=== PATIENT | male | born 1960 | race Caucasian/White ===

== ENCOUNTER 2017-01-22 15:26 | Emergency (ER) | payer MEDICARE ==
[2017-01-22] MEDS ORDERED: Pepcid 20 MG VIAL IV ONE ×2 (15:55→16:14)
[2017-01-22] MEDS ORDERED: BENADRYL 50 MG/ML IV ONE (15:55)
[2017-01-22] MEDS ORDERED: SUBLIMAZE 100 MCG/2 ML IV ONE (15:55)
[2017-01-22] MEDS ORDERED: Sodium Chloride 0.9% 1000 ML 1,000 ML IV STA (15:55)
[2017-01-22 16:09] LABS: Mean Cell Volume 93.5 fl (78-100); Mean Corpuscular Hemoglobin 31.2 pg (26-32); Mean Platelet Volume 11.2 fl (6-9.5); Platelet Count 215 K/mm3 (150-450); Red Blood Count 5.25 M/mm3 (4.1-5.6); Red Cell Distribution Width 14.4 % (11.5-14.0); White Blood Count 11.3 K/mm3 (4.0-10.5)
[2017-01-22] MEDS ORDERED: BENADRYL 50 MG/ML ONE (16:14)
[2017-01-22 16:15] LABS: COMPLETE URINE MICROSCOPIC? NO; Collection Type VOID; Ph 5.5 (5-6)
[2017-01-22] MEDS ORDERED: SUBLIMAZE 100 MCG/2 ML ONE (16:15)
[2017-01-22] MEDS ORDERED: Sodium Chloride 0.9% 1000 ML 1,000 ML ONE (16:15)
[2017-01-22 16:32] LABS: ALBUMIN 3.7 g/dL (3.4-5.0); ALKALINE PHOSPHATASE 100 U/L (46-116); ANION GAP 11.7 MEQ/L (5-15); BILIRUBIN,TOTAL 0.2 mg/dL (0.2-1.0); BLOOD UREA NITROGEN 8 mg/dL (9-20); CHLORIDE 107 mEq/L (98-107); Carbon Dioxide 28.1 mEq/L (21-32); Glucose 98 MG/DL (70-110); LIPASE 452 U/L (73-393); SGOT/AST 28 U/L (15-37); SGPT/ALT 29 U/L (12-78); SODIUM 143 mEq/L (136-145); Total Protein 7.6 gm/dL (6.4-8.2)
[2017-01-22 16:40] LABS: ATYPICAL LYMPHS 7 %; BAND 1 % (0.0-2.0); Basophil 1 % (0.0-1.0); Eosinophil 3 % (0.00-3.0); Platelet Estimate NORMAL (NORMAL); Total Cells Counted 100
--- NOTE | 2017-01-22 17:00 | ERPHSYRPT ---
- History of Present Illness Time Seen by Provider: 01/22/17 15:29 Historian: patient Patient Subjective Stated Complaint: abd pain for 2 weeks Triage Nursing Assessment: states has intermittent all over abd pain for 2 weeks. no pattern with oral intake. normal bowel/bladder. denies injury. adb soft, hypoactive. normal bm this am. Physician History: CC: abd pain Hx: 56 y/o patient of ROHIT García. He has abdominal pain worse in left abdomen for 2 weeks. Comes and goes and some worse today. Normal bowel and bladder function. No fever or chills. No prior abd surgeries. Burning pain. Might have started when he twisted 2 weeks ago. 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 Timing/Duration: week(s) (2) Allergies/Adverse Reactions: aspirin Allergy (Verified 01/22/17 15:36) Home Medications: Simvastatin 20Mg [Zocor 20Mg] 20 mg PO HS 09/26/13 [History] Hx Tetanus, Diphtheria Vaccination/Date Given: Yes Hx Influenza Vaccination/Date Given: No Hx Pneumococcal Vaccination/Date Given: No Immunizations Up to Date: Yes - Review of Systems Constitutional: No Fever, No Chills Eyes: No Symptoms Ears, Nose, & Throat: No Symptoms Respiratory: No Cough Cardiac: No Chest Pain Abdominal/Gastrointestinal: Abdominal Pain, No Nausea, No Vomiting, No Diarrhea Genitourinary Symptoms: No Dysuria Musculoskeletal: No Back Pain Skin: No Rash Neurological: No Headache All Other Systems: Reviewed and Negative - Past Medical History Pertinent Past Medical History: Yes Cardiac History: High Cholesterol - Past Surgical History Past Surgical History: Yes Musculoskeletal: Orthopedic Surgery - Social History Smoking Status: Current every day smoker Exposure to second hand smoke: No Drug Use: none Patient Lives Alone: No - Nursing Vital Signs Nursing Vital Signs: Initial Vital Signs Temperature 97.8 F Temperature Source Oral Pulse Rate 85 Respiratory Rate 16 Blood Pressure [Right Arm] 133/80 Pain Intensity 0 - Physical Exam General Appearance: alert Eye Exam: PERRL/EOMI Ears, Nose, Throat Exam: normal ENT inspection, moist mucous membranes Neck Exam: normal inspection, non-tender, supple Respiratory Exam: normal breath sounds, lungs clear Cardiovascular Exam: regular rate/rhythm, No murmur Gastrointestinal/Abdomen Exam: soft, tenderness (guards around abdomen but not reproducible) Male Genitalia Exam: No hernia, No testicular tenderness Back Exam: normal inspection, normal range of motion Extremity Exam: normal inspection, normal range of motion Neurologic Exam: alert, oriented x 3, 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, 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, sensation nml, No motor deficits Skin Exam: warm, dry, No rash SpO2 Interpretation: normal SpO2: 96 Oxygen Delivery: Room Air - Course Nursing assessment & vital signs reviewed: Yes EKG Interpreted by Me: RATE (74), Sinus Rhythm, NORMAL AXIS, NORMAL INTERVALS ( QTc 409), NORMAL QRS, NORMAL ST-T - CT Exams abd/pelvis CT Interpretation: Tele-radiologist Report (bowel wall thickening, diverticulitis) Ordered Tests: Active Orders 24 hr Category Date Time Status Clean Catch Urine Specimen STAT Care 01/22/17 15:55 Active EKG-ER Only STAT Care 01/22/17 15:55 Active IV Insertion STAT Care 01/22/17 15:55 Active ABDOMEN AND PELVIS W CONTRAST [CT] Stat Exams 01/22/17 15:55 Taken CBC W DIFF Stat Lab 01/22/17 16:07 Completed CMP Stat Lab 01/22/17 16:07 Completed LIPASE Stat Lab 01/22/17 16:07 Completed Manual Differential NC Stat Lab 01/22/17 16:07 Completed UA Stat Lab 01/22/17 16:07 Completed Urine Triage Profile Stat Lab 01/22/17 16:07 Completed Medication Summary Generic Name Dose Route Start Last Admin Trade Name Freq PRN Reason Stop Dose Admin Levofloxacin 500 mg 01/22/17 17:41 Levofloxacin 500 Mg Tablet PO 01/22/17 17:42 STAT ONE Metronidazole 500 mg 01/22/17 17:41 Flagyl 500 Mg PO 01/22/17 17:42 STAT ONE Discontinued Medications Generic Name Dose Route Start Last Admin Trade Name Freq PRN Reason Stop Dose Admin Diphenhydramine HCl 25 mg 01/22/17 15:55 01/22/17 16:21 Benadryl 50 Mg/Ml IV 01/22/17 15:56 25 mg STAT ONE Administration Diphenhydramine HCl Confirm 01/22/17 16:14 Benadryl 50 Mg/Ml Administered 01/22/17 16:15 Dose 50 mg .ROUTE .STK-MED ONE Famotidine 20 mg 01/22/17 15:55 01/22/17 16:21 Pepcid 20 Mg Vial IV 01/22/17 15:56 20 mg STAT ONE Administration Famotidine Confirm 01/22/17 16:14 Pepcid 20 Mg Vial Administered 01/22/17 16:15 Dose 20 mg IV .STK-MED ONE Fentanyl Citrate 50 mcg 01/22/17 15:55 01/22/17 16:21 Sublimaze 100 Mcg/2 Ml IV 01/22/17 15:56 50 mcg STAT ONE Administration Fentanyl Citrate Confirm 01/22/17 16:15 Sublimaze 100 Mcg/2 Ml Administered 01/22/17 16:16 Dose 100 mcg .ROUTE .STK-MED ONE Sodium Chloride 1,000 mls @ 999 mls/hr 01/22/17 15:55 01/22/17 16:21 Sodium Chloride 0.9% 1000 Ml IV 01/22/17 16:55 999 mls/hr .Q1H1M STA Administration Sodium Chloride Confirm 01/22/17 16:15 Sodium Chloride 0.9% 1000 Ml Administered 01/22/17 16:16 Dose 1,000 mls @ ud .ROUTE .STK-MED ONE Lab/Rad Data: Laboratory Result Diagrams 01/22/17 16:07 01/22/17 16:07 Laboratory Results 01/22/17 01/22/17 01/22/17 Range/Units 16:07 16:07 16:07 WBC 11.3 H (4.0-10.5) K/mm3 RBC 5.25 (4.1-5.6) M/mm3 Hgb 16.4 (12.5-18.0) gm/dl Hct 49.1 (42-50) % MCV 93.5 (78-100) fl MCH 31.2 (26-32) pg MCHC 33.4 (32-36) g/dl RDW 14.4 H (11.5-14.0) % Plt Count 215 (150-450) K/mm3 MPV 11.2 H (6-9.5) fl Segmented Neutrophils 57 (36.-66.) % Band Neutrophils 1 (0.0-2.0) % Lymphocytes (Manual) 25 (24-44) % Monocytes (Manual) 6 (0.0-12.0) % Eosinophils (Manual) 3 (0.00-3.0) % Basophils (Manual) 1 (0.0-1.0) % Differential Comment NORMAL Atypical Lymphocytes 7 % Platelet Estimate NORMAL (NORMAL) Sodium 143 (136-145) mEq/L Potassium 4.0 (3.5-5.1) mEq/L Chloride 107 (98-107) mEq/L Carbon Dioxide 28.1 (21-32) mEq/L Anion Gap 11.7 (5-15) MEQ/L BUN 8 L (9-20) mg/dL Creatinine 1.08 (0.55-1.30) mg/dl Estimated GFR > 60 ML/MIN Glucose 98 (70-110) MG/DL Calcium 8.6 (8.5-10.1) mg/dL Total Bilirubin 0.2 (0.2-1.0) mg/dL AST 28 (15-37) U/L ALT 29 (12-78) U/L Alkaline Phosphatase 100 (46-116) U/L Serum Total Protein 7.6 (6.4-8.2) gm/dL Albumin 3.7 (3.4-5.0) g/dL Lipase 452 H (73-393) U/L Ur Collection Type Urine Color (YELLOW) Urine Appearance (CLEAR) Urine pH (5-6) Ur Specific [place] (1.005-1.025) Urine Protein (Negative) Urine Glucose (UA) (NEGATIVE) mg/dL Urine Ketones (NEGATIVE) Urine Nitrite (NEGATIVE) Urine Bilirubin (NEGATIVE) Urine Urobilinogen (0-1) mg/dL Urine WBC (Auto) (NEGATIVE) Urine RBC (Auto) (0-5) Michael/ul Urine Opiates Level NEG. (NEGATIVE) Ur Methadone NEG. (NEGATIVE) Urine Barbiturates NEG. (NEGATIVE) Ur Phencyclidine (PCP) NEG. (NEGATIVE) Urine Amphetamine NEG. (NEGATIVE) U Benzodiazepine Level NEG. (NEGATIVE) Urine Cocaine NEG. (NEGATIVE) Urine Marijuana (THC) POS. (NEGATIVE) Specimen Received 01/22/17 Range/Units 16:07 WBC (4.0-10.5) K/mm3 RBC (4.1-5.6) M/mm3 Hgb (12.5-18.0) gm/dl Hct (42-50) % MCV (78-100) fl MCH (26-32) pg MCHC (32-36) g/dl RDW (11.5-14.0) % Plt Count (150-450) K/mm3 MPV (6-9.5) fl Segmented Neutrophils (36.-66.) % Band Neutrophils (0.0-2.0) % Lymphocytes (Manual) (24-44) % Monocytes (Manual) (0.0-12.0) % Eosinophils (Manual) (0.00-3.0) % Basophils (Manual) (0.0-1.0) % Differential Comment Atypical Lymphocytes % Platelet Estimate (NORMAL) Sodium (136-145) mEq/L Potassium (3.5-5.1) mEq/L Chloride (98-107) mEq/L Carbon Dioxide (21-32) mEq/L Anion Gap (5-15) MEQ/L BUN (9-20) mg/dL Creatinine (0.55-1.30) mg/dl Estimated GFR ML/MIN Glucose (70-110) MG/DL Calcium (8.5-10.1) mg/dL Total Bilirubin (0.2-1.0) mg/dL AST (15-37) U/L ALT (12-78) U/L Alkaline Phosphatase (46-116) U/L Serum Total Protein (6.4-8.2) gm/dL Albumin (3.4-5.0) g/dL Lipase (73-393) U/L Ur Collection Type VOID Urine Color YELLOW (YELLOW) Urine Appearance CLEAR (CLEAR) Urine pH 5.5 (5-6) Ur Specific [place] 1.025 (1.005-1.025) Urine Protein NEGATIVE (Negative) Urine Glucose (UA) NEGATIVE (NEGATIVE) mg/dL Urine Ketones NEGATIVE (NEGATIVE) Urine Nitrite NEGATIVE (NEGATIVE) Urine Bilirubin NEGATIVE (NEGATIVE) Urine Urobilinogen 0.2 (0-1) mg/dL Urine WBC (Auto) NEGATIVE (NEGATIVE) Urine RBC (Auto) NEGATIVE (0-5) Michael/ul Urine Opiates Level (NEGATIVE) Ur Methadone (NEGATIVE) Urine Barbiturates (NEGATIVE) Ur Phencyclidine (PCP) (NEGATIVE) Urine Amphetamine (NEGATIVE) U Benzodiazepine Level (NEGATIVE) Urine Cocaine (NEGATIVE) Urine Marijuana (THC) (NEGATIVE) Specimen Received 01/22/17 1600 - Progress Progress Note: 01/22/17 17:42 Abd soft and without point tenderness. Will treat with oral abtx as OP. Instr given. Counseled pt/family regarding: lab results, diagnosis, need for follow-up, rad results - Departure Time of Disposition: 17:43 Departure Disposition: Home Clinical Impression: Diverticulitis Qualifiers: Diverticulitis site: large intestine Diverticulitis bleeding: without bleeding Diverticulitis complication: without perforation or abscess Qualified Code(s): K57.32 - Diverticulitis of large intestine without perforation or abscess without bleeding Condition: Stable Critical Care Time: No Referrals: CRISTINE GARCÍA [Primary Care Provider] - Instructions: Abdominal Pain-Adult, Diverticulitis Additional Instructions: [place] diet with no nuts, seeds, hulls. Rx levaquin. Rx flagyl. No alcohol products. Follow up with ROHIT García Tuesday or Tuesday. Return for fever, worsened pain, vomiting, passing blood or concerns. Tylenol as directed for discomfort. Prescriptions: Levofloxacin [Levaquin] 500 mg PO DAILY #10 tablet Metronidazole 500 mg [Flagyl 500 MG] 500 mg PO BID #20 tablet
[2017-01-22] MEDS ORDERED: Flagyl 500 MG PO ONE (17:41)
[2017-01-22] MEDS ORDERED: Levofloxacin 500 MG Tablet PO ONE (17:41)
[2017-01-22 17:45] VITALS: O2SAT 96
[2017-01-22] MEDS ORDERED: Levofloxacin 500 MG Tablet ONE (17:45)
[2017-01-22] MEDS ORDERED: Flagyl 500 MG ONE (17:45)
[2017-01-22 17:59] VITALS: BP 128/72; PULSE 80
--- NOTE | 2017-01-22 23:13 | XRAY ---
Indication: Abdominal pain. Multiple contiguous axial images obtained through the abdomen and pelvis using 80 cc Isovue 370 contrast only. Comparison: None Lung bases are essentially clear. Heart is not enlarged. Noncontrasted stomach and bowel loops appear nonobstructed. Mild diffuse scattered colonic fecal debris and diverticulosis. Sigmoid colon demonstrates long segment of moderate circumferential wall thickening with minimal stranding possible mild/early diverticulitis. No free fluid/air. Normal appendix. Remaining liver, gallbladder, pancreas, spleen, adrenal glands, kidneys, ureters, and bladder appear unremarkable. Mild aortoiliac calcifications without AAA or pathologic retroperitoneal lymphadenopathy. Osseous structures intact. Small fatty right inguinal hernia. Impression: 1. Scattered colonic diverticulosis. Mild/early sigmoid diverticulitis without complications. 2. Mild fecal stasis without obstruction. 3. Small fatty right inguinal hernia. Comment: Preliminary interpretation was made by C. No critical discrepancy. CTDI 23.10
== END 2017-01-22 18:00 | disposition home or self-care (01) ==
LOC: ED 15:26
DX: K57.32 Diverticulitis of large intestine without perforation or abscess without bleeding (principal); R10.9 Unspecified abdominal pain; M92.50 Unspecified juvenile osteochondrosis of tibia and fibula
CPT/HCPCS: 36000; 36415; 74177; 80053; 80307; 81002; 83690; 85025; 93005; 96360; 96374; 96375; 99284; J1200; J3010; A9270-GY

== ENCOUNTER 2017-02-14 05:56 | Day surgery (SDC) | payer MEDICARE ==
[2017-02-14] MEDS ORDERED: Lactated Ringers 1,000 ML IV SCH (06:30)
[2017-02-14] MEDS ORDERED: Ketamine HCl 50 MG/ML IV ONE (08:00)
[2017-02-14] MEDS ORDERED: DIPRIVAN 200 MG/20 ML IV ONE (08:00)
--- NOTE | 2017-02-14 10:04 | OP ---
SURGERY DATE: 02/14/2017 SURGERY TIME: 725 PREOPERATIVE DIAGNOSES: 1. Abdominal pain. 2. Change in bowel habits. POSTOPERATIVE DIAGNOSES: 1. Small polyp in the transverse colon. 2. Mild diverticulosis. OPERATIVE PROCEDURE: Colonoscopy with biopsy. SURGEON: Dr. Loja. MEDICATIONS: MAC anesthesia. HISTORY: The patient is a 56 year-old white male patient presenting now for colonoscopic evaluation. He was appraised the risks of the procedure including the risk of perforation, phlebitis, untoward reaction to medication, bleeding, missed lesions. The patient verbalized understanding, and desired to have the procedure performed. DESCRIPTION OF PROCEDURE: The patient was given medication by the anesthesia department. He had continuous pulse oximetry, ECG monitoring, and intermittent BP monitoring and end-tidal CO2 monitoring during the examination. He was placed in the left lateral decubitus position. A digital rectal examination was performed and revealed normal anal sphincter tone, no masses, and normal prostate. The flexible Olympus pediatric colonoscope was used to intubate the rectum. A view of the colon was developed sequentially to the cecum. Upon insertion and withdrawal there was noted mild diverticulosis in the left colon. There was also noted 1 small sessile polyp measuring approximately 0.5 to 1.0 cm in size. This was biopsied with [employer] biopsy technique to rule out any adenomatous change. Upon insertion and withdrawal including retroflex views of the rectum no other mucosal lesions were encountered. The scope was removed from the patient, who tolerated the procedure well and was sent back to OP recovery in good condition. The prep was noted to be good.
[2017-02-14 10:17] VITALS: BP 137/90; PULSE 76; O2SAT 98
== END 2017-02-14 09:40 | disposition home or self-care (01) ==
LOC: SDC 05:56
PROVIDERS: ATTEND Family Medicine
PROC: 0DBL8ZX Excision of Transverse Colon, Via Natural or Artificial Opening Endoscopic, Diagnostic (ICD-10-PCS; principal; 2017-02-14)
DX: D12.3 Benign neoplasm of transverse colon (principal); K57.90 Diverticulosis of intestine, part unspecified, without perforation or abscess without bleeding; R19.4 Change in bowel habit
CPT/HCPCS: 00810; 36415; 88305; J2704

== ENCOUNTER 2017-10-24 08:32 | Day surgery (SDC) | payer MEDICARE ==
--- NOTE | 2017-10-24 07:53 | HP ---
DATE OF SURGERY: 10/24/2017 HISTORY OF PRESENT ILLNESS: The patient is a 57 year-old who had some mid abdominal pain for months and right upper quadrant pain at times. No nausea or vomiting. He had some diverticular problems in the past as well. Ultrasound showed cholelithiasis. He denies any abdominal surgery. No change in bowel movements, any liver problems or jaundice. I feel he has symptomatic cholelithiasis, chronic cholecystitis. I feel he would benefit from cholecystectomy. PAST MEDICAL HISTORY: Hypercholesterolemia, diverticular problems. PAST SURGICAL HISTORY: Knee replacement. MEDICATIONS: Simvastatin. ALLERGIES: ASPIRIN. FAMILY HISTORY: Diabetes. SOCIAL HISTORY: One pack per day smoker, denies alcohol abuse. REVIEW OF SYSTEMS: Twelve systems reviewed per admission assessment. No chest pain or palpitations other systems negative or noncontributory as above and per preadmission questionnaire. PHYSICAL EXAMINATION: GENERAL: No acute distress. HEENT: Sclerae nonicteric. NECK: No JVD. CHEST: Equal excursion, nonlabored breathing. CVS: Regular rate and rhythm. ABDOMEN: Soft. No peritoneal signs. EXTREMITIES: No significant edema. NEURO: Alert, oriented, moving extremities symmetrically. No gross motor deficits noted. LAB DATA AND TESTS: He had an ultrasound show cholelithiasis. IMPRESSION: Symptomatic cholelithiasis, probable chronic cholecystitis. I feel the patient would benefit from cholecystectomy. Shown the gallbladder pamphlet and risk sheet, explained the procedure in detail but not limited to bleeding or infection, risk of trocar injury or hernia, small risk of bowel, bladder or blood vessel injury, small risk of bile leak, bile duct injury, retained stone or sludge possibly requiring further procedure either open or ERCP, general risk of anesthesia, deep venous thrombosis, pulmonary embolism, pneumonia, perioperative risk of aches, pains, bloating, constipation and/or loose stools possibly chronic in nature, general risk of anesthesia or sedation but not limited to. He understands and agrees to the planned procedure and will proceed with laparoscopic cholecystectomy possible open as an outpatient.
[~2017-10-24 08:32] MED LIST: Lactated Ringers 1,000 ML IV ONE; Lactated Ringers 1,000 ML IV SCH; Sensorcaine 0.25% 10 ML ONE
[2017-10-24] MEDS ORDERED: BRIDION 200MG/2ML IV ONE (08:33)
[2017-10-24] MEDS ORDERED: Zemuron 100 MG/10 ML IV ONE (08:33)
[2017-10-24] MEDS ORDERED: DILAUDID 2 MG INJECTION IV ONE (08:33)
[2017-10-24] MEDS ORDERED: Versed 2 MG/2 ML Injection IV ONE (08:33)
[2017-10-24] MEDS ORDERED: DIPRIVAN 200 MG/20 ML IV ONE (08:33)
[2017-10-24] MEDS ORDERED: SUBLIMAZE 250 MCG/5 ML IV ONE (08:33)
[2017-10-24] MEDS ORDERED: Lactated Ringers 1,000 ML IV ONE (08:42)
[2017-10-24] MEDS ORDERED: MEFOXIN 2 GM PREMIX** 2 GM/50 ML ML IV SCH (09:00)
[2017-10-24] MEDS ORDERED: Xopenex 1.25 MG/0.5 ML UD NEBULE IH ONE ×2 (11:23→11:25)
[2017-10-24] MEDS ORDERED: DILAUDID 2 MG INJECTION ONE (11:32)
[2017-10-24 14:53] VITALS: BP 126/78; PULSE 88; O2SAT 98
--- NOTE | 2017-10-25 07:41 | OP ---
SURGERY DATE/TIME: 10/24/2017 1017 PREOPERATIVE DIAGNOSIS: Symptomatic cholelithiasis, chronic cholecystitis. POSTOPERATIVE DIAGNOSIS: Symptomatic cholelithiasis, chronic cholecystitis. PROCEDURE: Laparoscopic cholecystectomy. SURGEON: Dr. Vasu Lockhart. FURNITURE ARRANGER: Fatou Hagen, Medical Student III. ANESTHESIA: General. ESTIMATED BLOOD LOSS: Minimal. INDICATIONS: As noted above. Risks and benefits explained in detail and not limited to and consent obtained. DESCRIPTION OF PROCEDURE AND FINDINGS: The patient was taken to the OR. General anesthesia was induced. Abdomen prepped and draped in the usual sterile fashion. After official time out and no disagreement with planned procedure, a transverse incision made at the supraumbilical area. Fascia grasped and pulled upward. Veress needle inserted and tested with saline. Pneumoperitoneum accomplished insufflating opening pressure of 0-15. An 11 mm bladeless port and camera were inserted without difficulty followed by two - 5 mm right upper quadrant ports and a 5 mm epigastric port. The gallbladder grasped and retracted over the edge of the liver. Extensive omental adhesions over the top edge of the liver and these were carefully taken down with brief bursts of pin point cautery staying well away from any viscera. The gallbladder is able to be grasped and retracted over the edge of the liver. He had extensive fibrofatty adhesions. Dissected posterior-lateral to anterior fashion down to cystic duct infundibular area as well as the main cystic artery isolated and carefully dissected free until a critical view obtained both anteriorly and posteriorly. Once this was accomplished cystic duct was then clipped x3 and divided in the usual fashion clipping additional oozing side branches directly on the gallbladder wall as necessary staying directly on the gallbladder wall. Just prior to releasing from final attachments to the anterior edge of the liver the liver bed re-inspected. Clips noted to be in place in cystic duct and cystic artery stumps. There were no signs of any active bleeding or bile leakage. The gallbladder was released from final attachments and placed in a Pleatman sac pulled up and out epigastrium and decompressed of bile, suctioned free and pulled free and passed off. The 07/27 fascia defect closed with puncture closure device with #1 Vicryl. Prior to releasing the pneumoperitoneum copious amount of irrigation irrigating lateral to the liver and subhepatic space irrigating until clear. The liver bed re-inspected. Clips noted to be in place in cystic duct and cystic artery stumps. There were no signs of any active bleeding or bile leakage. It was felt there is no benefit in drain placement. At this point pneumoperitoneum decompressed. The wound was irrigated out. Skin incision closed with 4-0 Vicryl. Steri-Strips and sterile dressing applied. 0.25% Marcaine local injected along the skin incision fascial defect. The patient tolerated the procedure well. There were no immediate complications. There was no family available to discuss the findings with at this time. If they have any questions I could be paged. Otherwise I will see him back in the office next week. He is transferred to the recovery room in stable condition.
== END 2017-10-24 13:45 | disposition home or self-care (01) ==
LOC: SDC 08:32
PROVIDERS: ATTEND Surgery
PROC: 0FT44ZZ Resection of Gallbladder, Percutaneous Endoscopic Approach (ICD-10-PCS; principal; 2017-10-24)
DX: K80.10 Calculus of gallbladder with chronic cholecystitis without obstruction (principal)
CPT/HCPCS: 00790; 88304; 94640; J0694; J1170; J2250; J2704; J3010; A9270-GY

== ENCOUNTER 2019-03-09 15:53 | Emergency (ER) | payer MEDICARE ==
[2019-03-09 16:08] VITALS: O2SAT 94
[2019-03-09] MEDS ORDERED: BACTRIM DS TABLET PO ONE (16:14)
[2019-03-09] MEDS: BACTRIM DS TABLET PO STA (16:15)
[2019-03-09] MEDS ORDERED: XYLOCAINE 1% HCL 20 ML MDV ONE (16:22)
[2019-03-09] MEDS: Rocephin 1000 MG INJ IM STA (16:27)
--- NOTE | 2019-03-09 16:33 | ERPHSYRPT ---
- History of Present Illness Time Seen by Provider: 03/09/19 16:05 Source: patient Exam Limitations: no limitations Patient Subjective Stated Complaint: Infected index finger Triage Nursing Assessment: pt ambulated to ER. complains of infection to right indesx finger. States he was in quick care 2 days ago with same complaint Physician History: 58 y/o left handed white male seen at [facility] 2 days ago for redness of right index finger. not sig better. no xray performed. no pain meds given. pt has rx for bactrim. Occurred: days ago (2) Method of Injury: unknown Severity of Pain-Max: mild Severity of Pain-Current: mild Extremities Pain Location: 2nd finger: right Modifying Factors: Improves With: movement Associated Symptoms: none Allergies/Adverse Reactions: aspirin Allergy (Verified 03/09/19 16:08) Hives Home Medications: Simvastatin 20Mg [Zocor 20Mg] 20 mg PO HS 09/26/13 [History] Hx Tetanus, Diphtheria Vaccination/Date Given: Yes Hx Influenza Vaccination/Date Given: No Hx Pneumococcal Vaccination/Date Given: No - Review of Systems Constitutional: No Symptoms Eyes: No Symptoms Ears, Nose, & Throat: No Symptoms Respiratory: No Symptoms Cardiac: No Symptoms Abdominal/Gastrointestinal: No Symptoms Genitourinary Symptoms: No Symptoms Musculoskeletal: Joint Pain (right finger), Joint Swelling Skin: Cellulitis Neurological: No Symptoms Psychological: No Symptoms Endocrine: No Symptoms Hematologic/Lymphatic: No Symptoms Immunological/Allergic: No Symptoms - Past Medical History Pertinent Past Medical History: Yes Neurological History: No Pertinent History ENT History: No Pertinent History Cardiac History: High Cholesterol Respiratory History: No Pertinent History Endocrine Medical History: No Pertinent History Musculoskeletal History: No Pertinent History GI Medical History: Diverticulosis, Gallbladder Disease History: No Pertinent History Psycho-Social History: No Pertinent History Male Reproductive Disorders: No Pertinent History - Past Surgical History Past Surgical History: Yes Neuro Surgical History: No Pertinent History Cardiac: No Pertinent History Respiratory: No Pertinent History Gastrointestinal: No Pertinent History Genitourinary: No Pertinent History Musculoskeletal: Joint Replacement, Orthopedic Surgery Other Surgical History: right knee replacement,colonoscopy. left elbow surgery - Social History Smoking Status: Current every day smoker How long have you smoked: 40years Exposure to second hand smoke: Yes Drug Use: none Patient Lives Alone: No - Nursing Vital Signs Nursing Vital Signs: Initial Vital Signs Temperature 98.6 F 03/09/19 15:59 Pulse Rate 81 03/09/19 15:59 Blood Pressure 141/84 03/09/19 15:59 O2 Sat by Pulse Oximetry 94 L 03/09/19 15:59 Pain Scale Pain Intensity 5 - Physical Exam General Appearance: no apparent distress, alert, anxiety Eyes, Ears, Nose, Throat Exam: normal ENT inspection, moist mucous membranes Neck Exam: normal inspection, non-tender, supple, full range of motion Cardiovascular/Respiratory Exam: chest non-tender Abdominal Exam: non-tender Back Exam: normal inspection, normal range of motion, No CVA tenderness, No vertebral tenderness Shoulder Exam: normal inspection, non-tender, no evidence of injury, normal ROM Elbow/Forearm Exam: normal inspection, non-tender, no evidence of injury, normal ROM Wrist Exam: normal inspection, non-tender, no evidence of injury, normal ROM Hand Exam: bone tenderness, soft tissue tenderness, swelling (right index finger cellulitis) Neuro/Tendon Exam: normal sensation, normal motor functions, normal tendon functions, responds to pain, no evidence tendon injury Mental Status Exam: alert, oriented x 3, cooperative Skin Exam: normal color, warm, dry SpO2 Interpretation: borderline oxygenation SpO2: 94 O2 Delivery: Room Air Ordered Tests: Active Orders 24 hr Category Date Time Status HAND (MINIMUM 3 VIEWS) Stat Exams 03/09/19 16:10 Taken CULTURE,WOUND Stat Lab 03/09/19 16:11 Ordered Medication Summary Discontinued Medications Generic Name Dose Route Start Last Admin Trade Name Surjitq PRN Reason Stop Dose Admin Ceftriaxone Sodium 1,000 mg 03/09/19 16:09 Rocephin 1000 Mg Inj IM 03/09/19 16:10 STAT STA Lidocaine HCl Confirm 03/09/19 16:22 Xylocaine 1% Hcl 20 Ml Mdv Administered 03/09/19 16:23 Dose 3 ml .ROUTE .STK-MED ONE Trimethoprim/Sulfamethoxazole 1 tab 03/09/19 16:09 03/09/19 16:15 Bactrim Ds Tablet PO 03/09/19 16:10 1 tab STAT STA Administration Trimethoprim/Sulfamethoxazole Confirm 03/09/19 16:14 Bactrim Ds Tablet Administered 03/09/19 16:15 Dose 1 tab PO .STK-MED ONE - Progress Progress Note: 03/09/19 16:33 xray-no fb, no acute process Counseled pt/family regarding: diagnosis, need for follow-up, rad results - Departure Departure Disposition: Home Clinical Impression: Cellulitis, finger Condition: Stable Critical Care Time: No Referrals: CRISTINE ROBERTS [Primary Care Provider] - Additional Instructions: soak finger warm epsom salts and warm soapy water daily. no ointments. follow up with primary doctor for persistent symptoms. return to ED if symptoms worsen. continue your antibiotics as prescribed. follow up with wound culture next week. Prescriptions: Hydrocodone/APAP 5/325 [[place] 5/325 mg] 1 each PO Q12H PRN PRN #6 tablet MDD 2 PRN Reason: Pain
[2019-03-09 16:38] VITALS: BP 135/79; PULSE 76
--- NOTE | 2019-03-09 21:40 | XRAY ---
Indication: Second finger laceration. Comparison: None 3 views of the right hand demonstrates old fifth metacarpal fracture. No other bony, articular, or soft tissue abnormalities.
== END 2019-03-09 16:36 | disposition home or self-care (01) ==
LOC: ED 15:53
DX: L03.011 Cellulitis of right finger (principal)
CPT/HCPCS: 73130; 87070; 87077; 87186; 96372; 99284; J0696; A9270-GY

== ENCOUNTER 2022-01-24 09:42 | Emergency (ER) | payer MEDICARE ==
[2022-01-24] MEDS ORDERED: TORAdol 30 mg Injection IM ONE (10:33)
[2022-01-24] MEDS ORDERED: TORAdol 30 mg Injection ONE (10:33)
--- NOTE | 2022-01-24 10:39 | ERPHSYRPT ---
- History of Present Illness Time Seen by Provider: 01/24/22 10:07 Historian: patient Exam Limitations: no limitations Patient Subjective Stated Complaint: PT states "My right side hurts when I move and bend, I might have pulled something. I was installing a stove when it started about three days ago." Triage Nursing Assessment: Pt presented alert and oriented X 3, skin wpd Pt ambulates with a slow upright steady gait, able to speak i clear full sentences. PT winces when he bends over Physician History: 61 years old male presented to ER with chief complaint of right flank pain for the last 3 days. Patient reports sharp pain moderate intensity, aggravated with movements in a certain direction, coughing, nonradiating, not associated with any nausea vomiting or urinary complaints. Patient thinks this could be a pulled muscle from working hard on the stove placement at home. No history of kidney stones. No fever chills reported. Timing/Duration: day(s) (3), intermittent, sudden, worse Activities at Onset: activity Quality: sharpness Abdominal Pain Onset Location: flank Pain Radiation: no radiation Severity of Pain-Max: moderate Severity of Pain-Current: moderate Modifying Factors: Worsens With: coughing, movement, palpation Associated Symptoms: denies symptoms Previous symptoms: no prior history Allergies/Adverse Reactions: aspirin Allergy (Verified 03/09/19 16:08) Hives Home Medications: Simvastatin 20Mg [Zocor 20Mg] 20 mg PO HS 09/26/13 [History] Atorvastatin Calcium [Lipitor] 10 mg PO DAILY 01/24/22 [History] Meclizine HCl 25 mg [Antivert 25 mg] 25 mg PO DAILY 01/24/22 [History] Metformin HCl 500 mg [Glucophage 500 MG] 500 mg PO BIDWM 01/24/22 [History] Hx Tetanus, Diphtheria Vaccination/Date Given: Yes Hx Influenza Vaccination/Date Given: No Hx Pneumococcal Vaccination/Date Given: No Immunizations Up to Date: Yes Travel Risk - International Travel Have you traveled outside of the country in past 3 weeks: No - Coronavirus Screening Are you exhibiting any of the following symptoms?: No Close contact with a COVID-19 positive Pt in past 14-21 Days: No - Vaccine Status Have you recieved a Covid-19 vaccination: Yes 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 - Vaccination Dates Date of 2cond Vaccination (if applicable): unkn Dates if Unknown: unkn - Review of Systems Constitutional: No Symptoms Eyes: No Symptoms Ears, Nose, & Throat: No Symptoms Respiratory: No Symptoms Cardiac: No Symptoms Abdominal/Gastrointestinal: Abdominal Pain Genitourinary Symptoms: No Symptoms Musculoskeletal: Myalgias Skin: No Symptoms Neurological: No Symptoms Psychological: No Symptoms Endocrine: No Symptoms Hematologic/Lymphatic: No Symptoms Immunological/Allergic: No Symptoms - Past Medical History Pertinent Past Medical History: Yes Neurological History: No Pertinent History ENT History: No Pertinent History Cardiac History: High Cholesterol Respiratory History: No Pertinent History Endocrine Medical History: No Pertinent History Musculoskeletal History: No Pertinent History GI Medical History: Diverticulosis, Gallbladder Disease History: No Pertinent History Psycho-Social History: No Pertinent History Male Reproductive Disorders: No Pertinent History - Past Surgical History Past Surgical History: Yes Neuro Surgical History: No Pertinent History Cardiac: No Pertinent History Respiratory: No Pertinent History Gastrointestinal: No Pertinent History Genitourinary: No Pertinent History Musculoskeletal: Joint Replacement, Orthopedic Surgery Other Surgical History: right knee replacement,colonoscopy. left elbow surgery - Social History Smoking Status: Current every day smoker How long have you smoked: 40years Exposure to second hand smoke: Yes Drug Use: none Patient Lives Alone: No - Nursing Vital Signs Nursing Vital Signs: Initial Vital Signs Temperature 97.5 F 01/24/22 09:59 Pulse Rate 79 01/24/22 09:59 Respiratory Rate 20 01/24/22 09:59 Blood Pressure 155/89 01/24/22 09:59 O2 Sat by Pulse Oximetry 98 01/24/22 09:59 Pain Scale Pain Intensity 0 - Physical Exam General Appearance: no apparent distress Eye Exam: PERRL/EOMI, eyes nml inspection Ears, Nose, Throat Exam: normal ENT inspection, TMs normal, pharynx normal, moist mucous membranes Neck Exam: normal inspection, supple, full range of motion Respiratory Exam: normal breath sounds, lungs clear Cardiovascular Exam: regular rate/rhythm, normal heart sounds Gastrointestinal/Abdomen Exam: soft, normal bowel sounds, tenderness (Right flank), No guarding Back Exam: normal inspection, normal range of motion, CVA tenderness (Right side) Extremity Exam: normal inspection, normal range of motion, pelvis stable, other (No midline tenderness) Neurologic Exam: alert, oriented x 3, cooperative Skin Exam: normal color SpO2 Interpretation: normal SpO2: 98 O2 Delivery: Room Air Ordered Tests: Active Orders 24 hr Category Date Time Status ABDOMEN AND PELVIS W/0 CONTRAS [CT] Stat Exams 01/24/22 10:32 Taken CBC W DIFF Stat Lab 01/24/22 10:42 Completed CMP Stat Lab 01/24/22 10:42 Completed LIPASE Stat Lab 01/24/22 10:42 Completed Manual Differential NC Stat Lab 01/24/22 10:42 Completed Medication Summary Discontinued Medications Generic Name Dose Route Start Last Admin Trade Name Ron PRN Reason Stop Dose Admin Ketorolac Tromethamine 30 mg 01/24/22 10:33 01/24/22 10:36 Ketorolac Tromethamine 30 Mg/Ml Inj IM 01/24/22 10:34 30 mg STAT ONE Administration Ketorolac Tromethamine Confirm 01/24/22 10:33 Ketorolac Tromethamine 30 Mg/Ml Inj Administered 01/24/22 10:34 Dose 30 mg .ROUTE .Topic-SeeToo ONE Lab/Rad Data: Laboratory Result Diagrams 01/24/22 10:42 01/24/22 10:42 Laboratory Results 01/24/22 01/24/22 01/24/22 Range/Units 10:42 10:42 10:07 WBC 9.4 (4.0-10.5) K/mm3 RBC 4.97 (4.1-5.6) M/mm3 Hgb 15.8 (12.5-18.0) gm/dl Hct 47.9 (42-50) % MCV 96.4 (78-100) fl MCH 31.8 (26-32) pg MCHC 33.0 (32-36) g/dl RDW 14.1 H (11.5-14.0) % Plt Count 268 (150-450) K/mm3 MPV 10.6 (7.5-11.0) fl Sodium 138 (137-145) mmol/L Potassium 4.3 (3.5-5.1) mmol/L Chloride 105 (98-107) mmol/L Carbon Dioxide 24 (22-30) mmol/L Anion Gap 13.6 (5-15) MEQ/L BUN 14 (9-20) mg/dL Creatinine 0.90 (0.66-1.25) mg/dL Estimated GFR > 60.0 ML/MIN Glucose 93 (74-106) mg/dL Calcium 9.5 (8.4-10.2) mg/dL Total Bilirubin 0.60 (0.2-1.3) mg/dL AST 34 (17-59) U/L ALT 33 (0-50) U/L Alkaline Phosphatase 92 (38-126) U/L Serum Total Protein 7.5 (6.3-8.2) g/dL Albumin 4.3 (3.5-5.0) g/dL Lipase 1994 H (23-300) U/L Urinalys Dipstick Clnc MAIN LAB Urine Color YELLOW (YELLOW) Urine Appearance CLEAR (CLEAR) Urine pH 5.5 (5-6) Ur Specific [place] 1.025 (1.005-1.025) POC Urine Protein Conf NEGATIVE (Negative) Urine Ketones NEGATIVE (NEGATIVE) Urine Nitrite NEGATIVE (NEGATIVE) Urine Bilirubin NEGATIVE (NEGATIVE) Urine Urobilinogen 0.2 (0-1) mg/dL Urine Leukocytes NEGATIVE (NEGATIVE) Urine WBC (Auto) NONE (0-5) /HPF Urine RBC (Auto) 0-2 (0-2) /HPF U Epithel Cells (Auto) RARE (FEW) /HPF Urine Bacteria (Auto) NONE SEEN (NEGATIVE) /HPF Urine RBC NEGATIVE (0-5) Michael/ul Urine Mucus (Auto) SLIGHT (NEGATIVE) /HPF Ur Culture Indicated? NO Urine Glucose NEGATIVE (NEGATIVE) mg/dL - Progress Progress: improved, re-examined Progress Note: 01/24/22 12:10 61 years old is evaluated for right flank pain. Given symptomatic treatment, on reevaluation is pain-free. No tenderness on exam. Work-up showed normal white count, grossly unremarkable chemistries but does have lipase of 1993 without any epigastric/right upper quadrant tenderness and negative CT for any acute pancreatic changes. This could be related to hypertriglyceridemia. Patient is on gemfibrozil. Recommended IV fluids and hydration, conservative management, observation admission but patient wants to go home. Recommended clear liquid diet for next 24 to 48 hours and slowly introduction of regular food, low fat diet and outpatient follow-up with primary care to recheck levels again in 2 da ys. Does not have UTI or hematuria and CT findings negative for any kidney stone. I believe is probably muscle strain discussed signs symptoms of worsening needing return to ER which he seems understanding. Stable for discharge. 01/24/22 12:14 Counseled pt/family regarding: lab results, diagnosis, need for follow-up, rad results - Departure Departure Disposition: Home Clinical Impression: Pancreatitis, Flank strain Condition: Stable Critical Care Time: No Referrals: CRISTINE ROBERTS NP [Primary Care Provider] - Follow up/PCP as directed (1-2 days for reevaluation) Instructions: Pancreatitis (DC), Flank Pain Additional Instructions: Take clear liquid diet for next 24 to 48 hours and slowly introduce regular food. Take low-fat diet. Follow-up with primary care for reevaluation in 1 to 2 days and recheck of pancreatic enzyme levels. Return to ER if having upper abdominal pain, nausea vomiting etc. Prescriptions: Hydrocodone/Acetaminophen [Hydrocodone-Acetamin 5-325 mg] 1 tab PO Q6HPRN PRN 3 Days #12 tablet MDD 4 PRN Reason: Pain
[2022-01-24 10:45] LABS: Appearance CLEAR (CLEAR); Bilirubin NEGATIVE (NEGATIVE); Epithelial Cells RARE /HPF (FEW); Glucose NEGATIVE (NEGATIVE); Mucus SLIGHT /HPF (NEGATIVE); RBC 0-2 /HPF (0-2)
[2022-01-24 10:46] LABS: Bacteria NONE SEEN /HPF (NEGATIVE); Ketones NEGATIVE (NEGATIVE); Nitrite NEGATIVE (NEGATIVE); Ph 5.5 (5-6); Protein,Urine Dip NEGATIVE (Negative); RBC NEGATIVE Ery/ul (0-5); Specific Gravity 1.025 (1.005-1.025); Urine Cultured Indicated? NO; Urobilinogen 0.2 mg/dL (0-1)
[2022-01-24 10:47] LABS: Dipstick done @ ? MAIN LAB
[2022-01-24 10:47] LABS: Hematocrit 47.9 % (42-50); Hemoglobin 15.8 gm/dl (12.5-18.0); Mean Cell Volume 96.4 fl (78-100); Mean Corpuscular Hemoglobin 31.8 pg (26-32); Mean Platelet Volume 10.6 fl (7.5-11.0); Platelet Count 268 K/mm3 (150-450); Red Blood Count 4.97 M/mm3 (4.1-5.6); Red Cell Distribution Width 14.1 % (11.5-14.0); White Blood Count 9.4 K/mm3 (4.0-10.5)
[2022-01-24 11:06] LABS: ALBUMIN 4.3 g/dL (3.5-5.0); ALKALINE PHOSPHATASE 92 U/L (38-126); ANION GAP 13.6 MEQ/L (5-15); BLOOD UREA NITROGEN 14 mg/dL (9-20); CHLORIDE 105 mmol/L (98-107); Calcium 9.5 mg/dL (8.4-10.2); Carbon Dioxide 24 mmol/L (22-30); EST GLOMERULAR FILTRATION RATE > 60.0 ML/MIN; Glucose 93 mg/dL (74-106); Potassium 4.3 mmol/L (3.5-5.1); SGOT/AST 34 U/L (17-59); SGPT/ALT 33 U/L (0-50); SODIUM 138 mmol/L (137-145); Total Protein 7.5 g/dL (6.3-8.2)
[2022-01-24 11:12] LABS: LIPASE 1994 U/L (23-300)
[2022-01-24 12:13] VITALS: O2SAT 98
[2022-01-24 12:19] VITALS: BP 127/80; PULSE 62
[2022-01-24 13:35] LABS: BAND 3 % (0.0-2.0); Eosinophil 6 % (0.00-3.0); Lymphocytes 42 % (24-44); Monocyte 6 % (0.0-12.0); Neutrophils 43 % (36.-66.); Platelet Estimate NORMAL (NORMAL); Total Cells Counted 100
--- NOTE | 2022-01-24 22:13 | XRAY ---
Indication: Right flank pain 3 days. Multiple contiguous axial images obtained through the abdomen and pelvis without contrast. Comparison: January 22, 2017 Lung bases demonstrates new indeterminant 3 mm posterior right lower lobe noncalcified nodule. No infiltrate or effusion. Heart not enlarged. Noncontrasted stomach and bowel loops appear nonobstructed with normal appendix. Again descending and sigmoid diverticulosis without diverticulitis. Interval cholecystectomy. No free fluid/air. Mild diffuse fatty liver. Stable small left mid renal cyst. Remaining liver, pancreas, spleen, adrenal glands, kidneys, ureters, and bladder appear unremarkable for noncontrast exam. Again mild aortoiliac calcifications without AAA. Osseous structures intact with minimal degenerative changes throughout the spine. Stable small fatty right inguinal hernia. Impression: 1. Again colonic diverticulosis, fatty liver, left renal cyst, small fatty right inguinal hernia, and chronic bony findings. 2. New indeterminant 3 mm right lower lobe noncalcified nodule. Outside comparison studies recommended if available. If not, CT chest recommended to establish Baseline with follow-up per Fleischner guidelines. 3. Remaining CT abdomen/pelvis without contrast exam is negative. Comment: Preliminary interpretation made by C. No critical discrepancy.
== END 2022-01-24 12:33 | disposition home or self-care (01) ==
LOC: ED 09:42
DX: K85.90 Acute pancreatitis without necrosis or infection, unspecified (principal); S39.011A Strain of muscle, fascia and tendon of abdomen, initial encounter; X50.9XXA Other and unspecified overexertion or strenuous movements or postures, initial encounter; Y93.E9 Activity, other interior property and clothing maintenance; E78.5 Hyperlipidemia, unspecified; Z72.0 Tobacco use; Z79.899 Other long term (current) drug therapy; Z79.891 Long term (current) use of opiate analgesic
CPT/HCPCS: 36415; 74176; 80053; 81015; 83690; 85025; 96372; 99284; J1885

== ENCOUNTER 2022-01-26 18:40 | Emergency (ER) | payer MEDICARE ==
[2022-01-26] MEDS ORDERED: Sodium Chloride 0.9% 1000 ML 1,000 ML IV STA (19:09)
[2022-01-26] MEDS ORDERED: PROTONIX 40 MG IV IV ONE ×2 (19:09→19:16)
[2022-01-26] MEDS ORDERED: MORPHINE SULFATE 4 MG INJ IV ONE (19:09)
[2022-01-26] MEDS ORDERED: MORPHINE SULFATE 4 MG INJ ONE (19:12)
[2022-01-26] MEDS ORDERED: Sodium Chloride 0.9% 1000 ML 1,000 ML ONE (19:12)
[2022-01-26] MEDS ORDERED: Zofran 4 MG/2 ML VIAL ONE (19:12)
[2022-01-26 19:36] LABS: Absolute Neutrophil Ct (ANC) 3.79 (1.4-6.9); Basophil (Absolute #) 0.04 (0-0.4); Eosinophil % 8.1 % (0.00-5.0); Eosinophil (Absolute #) 0.69 (0-0.5); Hematocrit 46.9 % (42-50); Hemoglobin 15.2 gm/dl (12.5-18.0); Lymphocyte (Absolute #) 2.65 (1.0-4.6); Lymphocytes % 30.9 % (24.0-44.0); Mean Cell Volume 96.5 fl (78-100); Mean Corpuscular Hemoglobin 31.3 pg (26-32); Mean Corpuscular Hgb Concent. 32.4 g/dl (32-36); Mean Platelet Volume 10.9 fl (7.5-11.0); Monocytes % 16.3 % (0.0-12.0); Neutrophil % 44.2 % (36.0-66.0); Platelet Count 265 K/mm3 (150-450); Red Blood Count 4.86 M/mm3 (4.1-5.6); White Blood Count 8.6 K/mm3 (4.0-10.5)
--- NOTE | 2022-01-26 19:37 | ERPHSYRPT ---
- History of Present Illness Time Seen by Provider: 01/26/22 18:42 Historian: patient Exam Limitations: no limitations Patient Subjective Stated Complaint: pt states "I was in here Tuesday and the pain still has not got better." Triage Nursing Assessment: pt ambulated into the er; pt is axo x4; c/o rt flank pain; pt states pain radiates to RLQ; pt states 8/10 pain to RLQ and rt flank area; abd is round and tender; RLQ tenderness with palpation; pt denies terrible with urination; pt denies N/V/D; hypertension Physician History: 59 years old male presented in the ER with chief complaint of 6 days history of right flank pain with progressive worsening. Patient was evaluated in the ER few days ago with negative CT abdomen pelvis, lipase of 1993 and was recommended conservative management with clear liquids. Patient report pain is getting worse without associated nausea vomiting or diarrhea. No fever or chills reported. Timing/Duration: day(s) (6), constant, gradual onset, worse Activities at Onset: rest Quality: sharpness Abdominal Pain Onset Location: flank Severity of Pain-Max: moderate Severity of Pain-Current: moderate Modifying Factors: Worsens With: movement, palpation Associated Symptoms: denies symptoms Previous symptoms: same symptoms as today Allergies/Adverse Reactions: aspirin Allergy (Verified 01/26/22 18:47) Hives Home Medications: Atorvastatin Calcium [Lipitor] 10 mg PO DAILY 01/24/22 [History] Meclizine HCl 25 mg [Antivert 25 mg] 25 mg PO DAILY 01/24/22 [History] Metformin HCl 500 mg [Glucophage 500 MG] 500 mg PO BIDWM 01/24/22 [History] gemfibroziL [Gemfibrozil] 600 mg PO BID 01/26/22 [History] Hx Tetanus, Diphtheria Vaccination/Date Given: Yes Hx Influenza Vaccination/Date Given: No Hx Pneumococcal Vaccination/Date Given: No Travel Risk - International Travel Have you traveled outside of the country in past 3 weeks: No - Coronavirus Screening Are you exhibiting any of the following symptoms?: No Close contact with a COVID-19 positive Pt in past 14-21 Days: No - Vaccine Status Have you recieved a Covid-19 vaccination: Yes 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 - Vaccination Dates Date of 2cond Vaccination (if applicable): unkn Dates if Unknown: unkn - Review of Systems Constitutional: No Symptoms Eyes: No Symptoms Ears, Nose, & Throat: No Symptoms Respiratory: No Symptoms Cardiac: No Symptoms Abdominal/Gastrointestinal: Abdominal Pain Genitourinary Symptoms: No Symptoms Musculoskeletal: No Symptoms Neurological: No Symptoms Psychological: No Symptoms Endocrine: No Symptoms Hematologic/Lymphatic: No Symptoms Immunological/Allergic: No Symptoms - Past Medical History Pertinent Past Medical History: Yes Neurological History: No Pertinent History ENT History: No Pertinent History Cardiac History: High Cholesterol Respiratory History: No Pertinent History Endocrine Medical History: No Pertinent History Musculoskeletal History: No Pertinent History GI Medical History: Diverticulosis, Gallbladder Disease History: No Pertinent History Psycho-Social History: No Pertinent History Male Reproductive Disorders: No Pertinent History - Past Surgical History Past Surgical History: Yes Neuro Surgical History: No Pertinent History Cardiac: No Pertinent History Respiratory: No Pertinent History Gastrointestinal: No Pertinent History Genitourinary: No Pertinent History Musculoskeletal: Joint Replacement, Orthopedic Surgery Other Surgical History: right knee replacement,colonoscopy. left elbow surgery - Social History Smoking Status: Former smoker How long have you smoked: 40years Exposure to second hand smoke: Yes Drug Use: none Patient Lives Alone: No - Nursing Vital Signs Nursing Vital Signs: Initial Vital Signs Temperature 97.7 F 01/26/22 18:52 Pulse Rate 78 01/26/22 18:52 Respiratory Rate 16 01/26/22 18:52 Blood Pressure 143/83 01/26/22 18:52 O2 Sat by Pulse Oximetry 95 01/26/22 18:52 Pain Scale Pain Intensity 7 - Physical Exam General Appearance: no apparent distress, alert Eye Exam: PERRL/EOMI Ears, Nose, Throat Exam: normal ENT inspection, pharynx normal Neck Exam: normal inspection, Kernig's, carotid bruit Respiratory Exam: normal breath sounds, lungs clear Cardiovascular Exam: regular rate/rhythm, normal heart sounds Gastrointestinal/Abdomen Exam: soft, normal bowel sounds, tenderness (Right flank), guarding Back Exam: normal inspection, normal range of motion Extremity Exam: normal inspection, normal range of motion, pelvis stable Neurologic Exam: alert, oriented x 3, cooperative Skin Exam: normal color SpO2 Interpretation: normal SpO2: 95 O2 Delivery: Room Air Ordered Tests: Active Orders 24 hr Category Date Time Status IV Insertion STAT Care 01/26/22 19:09 Active NPO (ED) STAT Care 01/26/22 19:09 Active ABDOMEN AND PELVIS W CONTRAST [CT] Stat Exams 01/26/22 22:02 Taken AMYLASE Stat Lab 01/26/22 19:25 Completed CBC W DIFF Stat Lab 01/26/22 19:25 Completed CMP Stat Lab 01/26/22 19:25 Completed LIPASE Stat Lab 01/26/22 19:25 Completed Medication Summary Discontinued Medications Generic Name Dose Route Start Last Admin Trade Name Surjitq PRN Reason Stop Dose Admin Sodium Chloride 1,000 mls @ 999 mls/hr 01/26/22 19:09 01/26/22 20:28 Sodium Chloride 0.9% 1000 Ml IV 01/26/22 20:09 Infused .Q1H1M STA Infusion Sodium Chloride Confirm 01/26/22 19:12 Sodium Chloride 0.9% 1000 Ml Administered 01/26/22 19:13 Dose 1,000 mls @ ud .ROUTE .STK-MED ONE Ketorolac Tromethamine 30 mg 01/26/22 22:16 01/26/22 22:19 Ketorolac Tromethamine 30 Mg/Ml Inj IV 01/26/22 22:17 30 mg STAT ONE Administration Ketorolac Tromethamine Confirm 01/26/22 22:16 Ketorolac Tromethamine 30 Mg/Ml Inj Administered 01/26/22 22:17 Dose 30 mg .ROUTE .STK-MED ONE Morphine Sulfate 4 mg 01/26/22 19:09 01/26/22 19:13 Morphine Sulfate 4 Mg/Ml Injection IV 01/26/22 19:10 4 mg STAT ONE Administration Morphine Sulfate Confirm 01/26/22 19:12 Morphine Sulfate 4 Mg/Ml Injection Administered 01/26/22 19:13 Dose 4 mg .ROUTE .STK-MED ONE Ondansetron HCl Confirm 01/26/22 19:12 Ondansetron Hcl 4 Mg/2 Ml Vial Administered 01/26/22 19:13 Dose 4 mg .ROUTE .STK-MED ONE Pantoprazole Sodium 40 mg 01/26/22 19:09 01/26/22 19:17 Pantoprazole 40 Mg Vial IV 01/26/22 19:10 40 mg STAT ONE Administration Pantoprazole Sodium Confirm 01/26/22 19:16 Pantoprazole 40 Mg Vial Administered 01/26/22 19:17 Dose 40 mg IV .STK-MED ONE Lab/Rad Data: Laboratory Result Diagrams 01/26/22 19:25 01/26/22 19:25 Laboratory Results 01/26/22 01/26/22 01/26/22 Range/Units 19:25 19:25 19:09 WBC 8.6 (4.0-10.5) K/mm3 RBC 4.86 (4.1-5.6) M/mm3 Hgb 15.2 (12.5-18.0) gm/dl Hct 46.9 (42-50) % MCV 96.5 (78-100) fl MCH 31.3 (26-32) pg MCHC 32.4 (32-36) g/dl RDW 14.0 (11.5-14.0) % Plt Count 265 (150-450) K/mm3 MPV 10.9 (7.5-11.0) fl Gran % 44.2 (36.0-66.0) % Eos # (Auto) 0.69 H (0-0.5) Absolute Lymphs (auto) 2.65 (1.0-4.6) Absolute Monos (auto) 1.40 H (0.0-1.3) Lymphocytes % 30.9 (24.0-44.0) % Monocytes % 16.3 H (0.0-12.0) % Eosinophils % 8.1 H (0.00-5.0) % Basophils % 0.5 (0.0-0.4) % Absolute Granulocytes 3.79 (1.4-6.9) Basophils # 0.04 (0-0.4) Sodium 140 (137-145) mmol/L Potassium 3.9 (3.5-5.1) mmol/L Chloride 107 (98-107) mmol/L Carbon Dioxide 28 (22-30) mmol/L Anion Gap 10.1 (5-15) MEQ/L BUN 12 (9-20) mg/dL Creatinine 0.89 (0.66-1.25) mg/dL Estimated GFR > 60.0 ML/MIN Glucose 89 (74-106) mg/dL Calcium 9.2 (8.4-10.2) mg/dL Total Bilirubin 0.50 (0.2-1.3) mg/dL AST 31 (17-59) U/L ALT 28 (0-50) U/L Alkaline Phosphatase 93 (38-126) U/L Serum Total Protein 7.5 (6.3-8.2) g/dL Albumin 4.2 (3.5-5.0) g/dL Amylase 63 (30-110) U/L Lipase 98 (23-300) U/L Urinalys Dipstick Clnc MAIN LAB Urine Color YELLOW (YELLOW) Urine Appearance CLEAR (CLEAR) Urine pH 6.0 (5-6) Ur Specific [place] 1.020 (1.005-1.025) POC Urine Protein Conf NEGATIVE (Negative) Urine Ketones NEGATIVE (NEGATIVE) Urine Nitrite NEGATIVE (NEGATIVE) Urine Bilirubin NEGATIVE (NEGATIVE) Urine Urobilinogen NORMAL (0-1) mg/dL Urine Leukocytes NEGATIVE (NEGATIVE) Urine WBC (Auto) NONE (0-5) /HPF Urine RBC (Auto) NONE (0-2) /HPF U Epithel Cells (Auto) NONE (FEW) /HPF Urine Bacteria (Auto) NONE (NEGATIVE) /HPF Urine RBC NEGATIVE (0-5) Michael/ul Ur Culture Indicated? NO Urine Glucose NEGATIVE (NEGATIVE) mg/dL - Progress Progress: improved Progress Note: 01/27/22 00:01 61 years old is evaluated for right flank pain, given symptomatic treatment, no rmal white count, unremarkable chemistries including lipase which is in the normal range now no UTI. I have obtained CT abdomen pelvis with contrast which is also negative for any acute finding on the right side. Patient is pain-free on reevaluation. Pain could be musculoskeletal in origin. Discussed signs symptoms of worsening needing return to ER which he seems understanding. Stable for discharge. 01/27/22 00:02 Counseled pt/family regarding: lab results, diagnosis, need for follow-up, rad results - Departure Departure Disposition: Home Clinical Impression: Right sided abdominal pain Condition: Stable Critical Care Time: No Referrals: CRISTINE ROBERTS NP [Primary Care Provider] - Follow Up with PCP/3 days Instructions: Flank Pain Additional Instructions: Follow-up with your primary care physician for reevaluation. Return to ER for worsening pain, intractable nausea vomiting/diarrhea/fever chills etc. Tylenol/ibuprofen as needed.
[2022-01-26 19:48] LABS: ALBUMIN 4.2 g/dL (3.5-5.0); ALKALINE PHOSPHATASE 93 U/L (38-126); AMYLASE 63 U/L (30-110); ANION GAP 10.1 MEQ/L (5-15); BLOOD UREA NITROGEN 12 mg/dL (9-20); CHLORIDE 107 mmol/L (98-107); Calcium 9.2 mg/dL (8.4-10.2); Carbon Dioxide 28 mmol/L (22-30); Creatinine 1 0.89 mg/dL (0.66-1.25); EST GLOMERULAR FILTRATION RATE > 60.0 ML/MIN; Glucose 89 mg/dL (74-106); LIPASE 98 U/L (23-300); Potassium 3.9 mmol/L (3.5-5.1); SGOT/AST 31 U/L (17-59); SGPT/ALT 28 U/L (0-50); SODIUM 140 mmol/L (137-145); Total Protein 7.5 g/dL (6.3-8.2)
[2022-01-26 21:16] LABS: Appearance CLEAR (CLEAR)
[2022-01-26 21:17] LABS: Bilirubin NEGATIVE (NEGATIVE); Dipstick done @ ? MAIN LAB; Glucose NEGATIVE (NEGATIVE); Ketones NEGATIVE (NEGATIVE); Nitrite NEGATIVE (NEGATIVE); Protein,Urine Dip NEGATIVE (Negative); RBC NEGATIVE Ery/ul (0-5); Urobilinogen NORMAL mg/dL (0-1)
[2022-01-26 21:18] LABS: Urine Cultured Indicated? NO
[2022-01-26] MEDS ORDERED: TORAdol 30 mg Injection ONE (22:16)
[2022-01-26] MEDS ORDERED: TORAdol 30 mg Injection IV ONE (22:16)
[2022-01-26 23:23] VITALS: O2SAT 95
[2022-01-27 00:12] VITALS: BP 149/89; PULSE 74
--- NOTE | 2022-01-27 08:55 | XRAY ---
Indication: Right abdomen pain. Multiple contiguous axial images obtained through the abdomen and pelvis using 80 cc Isovue 370 contrast. Comparison: January 24, 2022 Lung bases clear of infiltrate and effusion. Heart not enlarged. Noncontrasted stomach and bowel loops remain nonobstructed. Normal appendix. Again mild scattered descending and sigmoid diverticulosis without diverticulitis. No free fluid/air. Again mild fatty liver, small left mid renal cyst, and cholecystectomy. Remaining liver, pancreas, spleen, adrenal glands, kidneys, ureters, and bladder are unremarkable. Stable mild aortoiliac calcifications. Osseous structures intact again with minimal degenerative changes throughout the spine. Stable small fatty right inguinal hernia. Impression: No change from CT 2 days ago again demonstrating colonic diverticulosis, fatty liver, left renal cyst, small fatty right inguinal hernia, and chronic bony findings. No new/acute findings. Comment: Preliminary interpretation made by C. No critical discrepancy.
== END 2022-01-27 00:20 | disposition home or self-care (01) ==
LOC: ED 18:40
DX: R10.31 Right lower quadrant pain (principal); R10.11 Right upper quadrant pain; E78.5 Hyperlipidemia, unspecified; Z79.899 Other long term (current) drug therapy
CPT/HCPCS: 36000; 36415; 74177; 80053; 81015; 82150; 83690; 85025; 96374; 96375; 99284; J1885; J2270; J2405

== ENCOUNTER 2024-10-16 22:49 | Emergency (ER) | payer MEDICARE | END 2024-10-16 23:25 | disposition left against medical advice (07) | LOC: ED 22:49 | DX: Z53.21 Procedure and treatment not carried out due to patient leaving prior to being seen by health care provider (principal) ==